=== PATIENT | female | born 1980 | race Caucasian/White ===

== ENCOUNTER 2016-12-06 12:50 | Day surgery (SDC) | payer BC ==
[~2016-12-06 12:50] MED LIST: Lactated Ringers 1,000 ML IV SCH; Lidocaine 1%/Sod Bicarbonate in NS 8.4% 1 ML Syringe IV PRN; Midazolam 1 MG/ML 2 ML SDV ONE; Ondansetron 4 MG/2 ML SDV ONE; Propofol 200 MG/20 ML SDV ONE; Rocuronium 50 MG/5 ML Vial ONE; Sodium Chloride 0.9% 10 ML Syringe FLUSH PRN; fentaNYL 250 MCG/5 ML SDV ONE
[2016-12-06] MEDS ORDERED: Heparin Sodium 5,000 Units/ML Vial SUBCUT SCH (13:00)
[2016-12-06] MEDS ORDERED: Lidocaine 1% with EPINEPHrine 1:100,000 20 ML MDV ONE (13:13)
[2016-12-06] MEDS ORDERED: Bupivacaine 0.5%/EPINEPHrine 1:200,000 50 ML MDV ONE (13:13)
--- NOTE | 2016-12-06 13:24 | PCM.PREANE ---
Preanesthetic Assessment - Anesthesia/Transfusion/Family Hx Anesthesia History: Prior Anesthesia Without Reaction Type of Anesthesia Reaction: Other (see below) Family History of Anesthesia Reaction: No Transfusion History: Unknown - Review of Systems General: No Symptoms Pulmonary: No Symptoms Cardiovascular: Other (HTN, well controlled) Gastrointestinal: No symptoms Neurological: No Symptoms Other: Reports: None - Physical Assessment NPO Status Date: 12/05/16 NPO Status Time: 20:00 Pulse: 81 O2 Sat by Pulse Oximetry: 99 Respiratory Rate: 16 Blood Pressure: 148/102 Temperature: 36.8 C Weight: 103.827 kg ASA Class: 2 Mental Status: Alert & Oriented x3 Airway Class: Mallampati = 2 Dentition: Reports: Normal Dentition Thyro-Mental Finger Breadths: 3 Mouth Opening Finger Breadths: 3 ROM/Head Extension: Full Lungs: Clear to auscultation, Normal respiratory effort Cardiovascular: Regular Rate, Regular Rhythm - Lab Values: Laboratory Last Values Urine HCG, Qual Negative (NEGATIVE) 12/06/16 12:58 - Allergies Allergies/Adverse Reactions: Allergies Allergy/AdvReac Type Severity Reaction Status Date / Time amoxicillin AdvReac Mild vomitting Verified 12/06/16 11:40 - Blood Product(s) Available: None - Anesthesia Plan Pre-Op Medication Ordered: None - Acknowledgements Anesthesia Type Planned: General Anesthesia Pt an Appropriate Candidate for the Planned Anesthesia: Yes Alternatives and Risks of Anesthesia Discussed w Pt/Guardian: Yes Pt/Guardian Understands and Agrees with Anesthesia Plan: Yes PreAnesthesia Questionnaire Cardiovascular History: Reports: Hypertension Respiratory History: Reports: None Gastrointestinal History: Reports: Cholelithiasis, Other (see below) Other Gastrointestinal History: elevated liver enzymes, RUQ pain, lacotse intolerance 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: Reports: Polycystic Ovaries, Musculoskeletal History: Reports: None Neurological History: Reports: None Psychiatric History: Reports: None Endocrine/Metabolic History: Reports: Obesity/BMI 30+, Other (see below) Other Endocrine/Metabolic History: hirsutism Hematologic History: Reports: None Immunologic History: Reports: None Oncologic (Cancer) History: Reports: None Dermatologic History: Reports: Other (see below) Other Dermatologic History: acne, hidradenitis, tummy tuck - Past Surgical History HEENT Surgical History: Reports: Adenoidectomy, Tonsillectomy GI Surgical History: Reports: Bariatric procedure, EGD, ERCP Female Surgical History: Reports: Breast reconstruction, section, LEEP - SUBSTANCE USE Smoking Status *Q: Never Smoker Recreational Drug Use History: No - HOME MEDS Home Medications: Home Meds Cholecalciferol (Vitamin D3) [Vitamin D3] 50,000 unit PO WEEKLY 12/03/16 [ History] Hydrochlorothiazide [Hydrochlorothiazide] 12.5 mg PO DAILY 12/03/16 [History] amLODIPine [Norvasc] 5 mg PO DAILY 12/03/16 [History] - CURRENT (IN HOUSE) MEDS Current Meds: Current Medications Heparin Sodium (Porcine) (Heparin Sodium) 5,000 units SUBCUT ONETIME JOSE ANTONIO Lactated Ringer's (Ringers, Lactated) 1,000 mls @ 125 mls/hr IV ASDIRECTED JOSE ANTONIO Stop: 12/06/16 23:00 Lidocaine/Sodium Bicarbonate (Buffered Lidocaine 1% In Ns 8.4%) 0.25 ml IV ONETIME PRN PRN Reason: Prior to IV Start Stop: 12/06/16 18:00 Sodium Chloride (Saline Flush) 10 ml FLUSH ASDIRECTED PRN PRN Reason: Keep Vein Open Stop: 12/06/16 18:00 Discontinued Medications Fentanyl (Sublimaze) Confirm Administered Dose 250 mcg .ROUTE .STK-MED ONE Stop: 12/06/16 12:23 Midazolam HCl (Versed 1 Mg/Ml) Confirm Administered Dose 2 mg .ROUTE .STK-MED ONE Stop: 12/06/16 12:21 Ondansetron HCl (Zofran) Confirm Administered Dose 4 mg .ROUTE .STK-MED ONE Stop: 12/06/16 12:21 Propofol (Diprivan 20 Ml) Confirm Administered Dose 200 mg .ROUTE .STK-MED ONE Stop: 12/06/16 12:21 Rocuronium [place] (Zemuron) Confirm Administered Dose 50 mg .ROUTE .STK-MED ONE Stop: 12/06/16 12:21 Preanesthetic Assessment - LAB Values: Laboratory Last Values Urine HCG, Qual Negative (NEGATIVE) 12/06/16 12:58 - ALLERGIES Allergies/Adverse Reactions: Allergies Allergy/AdvReac Type Severity Reaction Status Date / Time amoxicillin AdvReac Mild vomitting Verified 12/06/16 11:40
[2016-12-06] MEDS ORDERED: Heparin Sodium 5,000 Units/ML Vial ONE (13:30)
[2016-12-06] MEDS ORDERED: HYDROmorphone 0.5 MG/0.5 ML Syringe IVPUSH PRN (14:00)
[2016-12-06] MEDS ORDERED: fentaNYL 100 MCG/2 ML SDV IVPUSH PRN (14:00)
[2016-12-06] MEDS ORDERED: Metoclopramide 10 MG/2 ML SDV IVPUSH PRN (14:00)
[2016-12-06] MEDS ORDERED: Ondansetron 4 MG/2 ML SDV IVPUSH PRN (14:00)
[2016-12-06] MEDS ORDERED: ceFAZolin 1 GM Vial ONE (14:14)
[2016-12-06] MEDS ORDERED: Sodium Chloride 0.9% 10 ML ONE (14:14)
[2016-12-06] MEDS ORDERED: Iopamidol 612 MG/ML 50 ML SDV ONE ×2 (14:15→15:55)
[2016-12-06] MEDS ORDERED: Sodium Chloride 0.9% 50 ML SDV ONE ×3 (14:15→16:00)
[2016-12-06] MEDS ORDERED: HYDROmorphone 1 MG/ML Syringe ONE ×2 (14:33→15:11)
[2016-12-06] MEDS ORDERED: Lactated Ringers 1,000 ML ONE (14:52)
[2016-12-06] MEDS ORDERED: Rocuronium 50 MG/5 ML Vial ONE (15:46)
[2016-12-06] MEDS ORDERED: fentaNYL 250 MCG/5 ML SDV ONE (16:18)
--- NOTE | 2016-12-06 17:18 | PCM.POSTAN ---
POST ANESTHESIA ASSESSMENT - MENTAL STATUS Mental Status: alert, oriented - VITAL SIGNS Pulse Rate: 79 SaO2: 97 Resp Rate: 20 Blood Pressure: 159/101 Temperature: 97 F - RESPIRATORY Respiratory Status: respiratory rate WNL, airway patent, O2 saturation stable, supplemental oxygen - CARDIOVASCULAR CV Status: pulse rate WNL, blood pressure stable - GASTROINTESTINAL GI Status: no symptoms - PAIN Pain Score: 5 - POST OP HYDRATION Hydration Status: adequate & stable
--- NOTE | 2016-12-06 17:36 | PCM.OPNOTE ---
- General Post-Op/Procedure Note Date of Surgery/Procedure: 12/06/16 Operative Procedure(s): 1. Laparoscopic cholecystectomy with cholangiogram. 2. Laparoscopic lysis of adhesions. 3. Fluoroscopic guidance and interpretation Pre Op Diagnosis: Symptomatic cholelithiasis, transaminitis Post-Op Diagnosis: Acute on chronic cholecystitis, cholelithiasis, intra- abdominal adhesions Anesthesia Technique: General ET tube, Local Primary Surgeon: Sugar Bender Anesthesia Provider: Ander Hernandez Pathology: Gallbladder Fluid Replacement, Intraop: 2,000 (mL crystalloid ) EBL in mLs: 75 Surgical Drain/Tube Type: Brendan Morris Drain Complications: None Condition: Good Free Text/Narrative:: INDICATION FOR PROCEDURE: The patient is a 36-year-old woman who had been referred to me by the JUAN FRANCISCO Williamson for evaluation of symptomatic cholelithiasis with transaminitis. Laparoscopic cholecystectomy with intraoperative cholangiogram was discussed with the patient and associated risks of the procedure. The patient found these risks acceptable and agreed to proceed. DESCRIPTION OF PROCEDURE: The patient was taken to the operating room and placed in the supine position. Sequential compressive devices were placed on the bilateral lower extremities. After induction of general endotracheal anesthesia, the abdomen was prepped and draped in the usual sterile fashion. Preoperative antibiotics in the form of Ancef were administered as per protocol. The patient also received 5000 units of subcutaneous heparin due to history of requiring blood thinners while due to uncertain etiology associated with recurrent miscarriages. A supraumbilical curvilinear incision was made using a scalpel. The patient did have a previous abdominoplasty and had a circumumbilical scar, this was utilized for the procedure. This was deepened down through the subcutaneous tissues to the anterior abdominal wall fascia which was elevated and incised. The abdomen was bluntly entered using a hemostat. An 0 Vicryl stay suture was placed. A Cedeno cannula was introduced into the abdomen and the abdomen was insufflated to 15 mm of mercury. The abdomen was then surveyed. The patient had several adhesive bands in the upper abdomen, likely associated with her previous gastric bypass. She also had some scarring of the anterior surface of the uterus consistent with her prior . Overall the uterus and adnexa appeared grossly unremarkable. I was not able to fully visualize each ovary, however the superior portion of each appeared unremarkable. Attention was turned then to the patient's gallbladder which was densely adhesed around the infundibulum. Two additional 5 mm trocars were then placed under direct visualization after first injecting local anesthetic, one in the epigastrium and one in the right subcostal margin. The adhesions in the upper abdomen were taken down using electrocautery. The gallbladder fundus was elevated, and the triangle of Calot was dissected. I did place a retraction suture through the gallbladder fundus to facilitate dissection. The infundibulum was extremely scarred. This portion of the case was quite difficult. The infundibulum was twisted significantly. Multiple photographs were taken as the dissection proceeded. The cystic artery was ultimately isolated anterior to the cystic duct with the cystic duct and infundibulum partially traversing behind it in a twisted manner due to scarring. The cystic artery was triply clipped and divided using Endo Hemalatha to facilitate further dissection of the infundibulum, which was also doubled over and scarred onto itself. At this point I did attempt to obtain a cholangiogram, however there was not good outflow as a result of the scarring in the area of the cystic duct. Further dissection was performed and ultimately a window posterior to the duct and now straightened infundibulum was obtained. A repeat cholangiogram was obtained using a Yanez catheter and the cystic duct was seen draining into the common bile duct. The right and left hepatic radicals were noted as well as drainage of contrast into the duodenum. There were no obvious filling defects. The amount of scar tissue around the cystic duct stump was too significant for standard clipping. I did upsize the epigastric trocar to a 12 mm trocar. A 35 mm vascular load stapler was then placed across the cystic duct and just proximal to the previously placed cystic artery clips. The stapler was fired. There did appears to be some crushed stone material in the staple line from the cystic duct. The gallbladder was then taken off of the liver bed where it was both densely adhesed and edematous. The gallbladder was placed into an EndoCatch bag. The abdomen was irrigated and suctioned until the effluent was clear. The liver bed was reinspected for hemostasis. The gallbladder was removed through the epigastric port site. A 19 Welsh Silastic channel drain was then passed through the epigastric trocar and out the right lateral 5 mm trocar. The drain was positioned in the gallbladder fossa. The epigastric trocar site was closed using 2 [id number] 0 Vicryl sutures. The periumbilical fascial incision was closed using an 0 Vicryl figure-of- eight suture. Additional local anesthetic was injected marcelo-incisionally. The skin incisions were then closed using subcuticular 4-0 Monocryl suture. The drain was secured into position using a 3-0 Ethilon suture and placed to bulb suction. Dermabond was placed over the patient's skin incisions. The patient was then awakened from anesthesia, extubated, and transferred to the recovery room in stable condition having tolerated the procedure well. Sponge and instrument counts were reported as correct at the end of the case. POSTOPERATIVE PLAN: The patient will be discharged home today. Prescriptions for Percocet 5/325mg were given in addition to Zofran ODT and Senna-S. Drain teaching was provided. They will follow up in 2 days for a post-operative check and drain removal. They are not lift over 20 pounds for the next 4 weeks. They are to call the office with any questions or concerns. I discussed my intraoperative findings and discharge instructions with the patient's aunt. I also repeated LFTs today for a preoperative baseline as other labs had been drawn by anesthesia.
[2016-12-06] MEDS: HYDROmorphone 0.5 MG/0.5 ML Syringe IVPUSH PRN ×2 (17:55→18:25)
[2016-12-06] MEDS: Acetaminophen/oxyCODONE 325-5 MG Tab PO PRN (20:21)
[2016-12-07] MEDS: Acetaminophen/oxyCODONE 325-5 MG Tab PO PRN ×2 (03:09→07:40)
--- NOTE | 2016-12-07 08:03 | CR ---
Addendum: An additional image was made available which shows the CHD and CBD. Very distal CBD is not well seen but contrast is identified within the duodenum. Other portions of the ducts show no filling defects. Visualized intrahepatic portion of the ducts appear within normal limits. Impression: 1. Poorly seen distal portion of the CBD. Please correlate with fluoroscopic findings. Contrast is noted within the duodenum. 2. Single cholangiogram view is otherwise unremarkable. Diagnostic code #2 --- Addendum1 above dictated on [12/07/2016 09:14] by [Dixon Murcia, Yadiel Parra.] --- --- Addendum1 above signed on [12/07/2016 09:16] by [Dixon Murcia, Yadiel Parra.] --- --- Original report below dictated on [12/07/2016 05:44] by [Dixon Murcia, Yadiel Parra.] --- --- Original report below signed on [12/07/2016 08:00] by [Dixon Murcia, Yadiel Knapp] --- Operative cholangiogram: Multiple fluoroscopic spot views were obtained utilizing C-arm device in the operating room. No contrast filling of the CHD or CBD is seen. Study shows minimal intrahepatic biliary duct opacification with extravasation into the gallbladder bed. Impression: 1. Suboptimal study as noted above. Diagnostic code #2 --- Addendum1 signed ---
[2016-12-07 10:13] VITALS: BP 127/82
== END 2016-12-07 09:11 | disposition home or self-care (01) ==
LOC: JD.SDS 12:50
PROVIDERS: ATTEND Surgery
DX: K80.12 Calculus of gallbladder with acute and chronic cholecystitis without obstruction (principal); K66.0 Peritoneal adhesions (postprocedural) (postinfection); I10 Essential (primary) hypertension; E66.01 Morbid (severe) obesity due to excess calories; Z79.899 Other long term (current) drug therapy; Z98.890 Other specified postprocedural states
CPT/HCPCS: 36415; 47563; 74300; 80048; 80076; 81025; 85025; 88304; 93005; A9270; J0690; J1170; J1644; J2250; J2405; J3010; J7120; Q9967; 00790; J2704

== ENCOUNTER 2017-06-12 10:52 | Emergency (ER) | payer BC ==
[2017-06-12] MEDS ORDERED: Sodium Chloride 0.9% 10 ML Syringe FLUSH PRN (11:53)
[2017-06-12] MEDS ORDERED: Sodium Chloride 0.9% 1,000 ML IV ONE (11:53)
--- NOTE | 2017-06-12 11:56 | EDM.PDOC ---
ED HPI GENERAL MEDICAL PROBLEM - General Chief Complaint: Upper Extremity Injury/Pain Stated Complaint: LEFT ARM SWOLLEN-SENT FROM WALK-IN Time Seen by Provider: 06/12/17 11:42 Source of Information: Reports: Patient History Limitations: Reports: No Limitations - History of Present Illness INITIAL COMMENTS - FREE TEXT/NARRATIVE: Patient is a 36-year-old female presents ED complaining of left arm swelling with redness and pain. Patient states onset of symptoms was this past Tuesday. Has noted increasing swelling since with redness and pain. States Tuesday she was involved in a T Rx class which required multiple repetitive movements to the upper body. Including bicep curls. States she was able to complete all the exercises with really no difficulties. She's noted the swelling has progressively gotten worse. She was seen at walk-in clinic today with concerns of having a blood clot. She does have a history of blood clot while being causing miscarriage. Blood clot was to the placenta. She is currently not . She is on Mirena and does not smoke. She has past medical history of hypertension and is currently on amlodipine with hydrochlorothiazide. Denies a fever/chills, shortness breath, chest pain, or any additional complaints. Urine color has been clear/light straw color. 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 Left Arm Pain Score (Numeric/FACES): 7 - Related Data Allergies Allergy/AdvReac Type Severity Reaction Status Date / Time amoxicillin AdvReac Mild vomitting Verified 06/12/17 11:08 Home Meds: Home Meds Hydrochlorothiazide 12.5 mg PO DAILY 12/03/16 [History] amLODIPine [Norvasc] 5 mg PO DAILY 12/03/16 [History] Past Medical History Cardiovascular History: Reports: Hypertension Respiratory History: Reports: None Gastrointestinal History: Reports: Cholelithiasis, Other (See Below) Other Gastrointestinal History: elevated liver enzymes, RUQ pain, lacotse intolerance 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: Polycystic 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, Musculoskeletal History: Reports: None Neurological History: Reports: None Psychiatric History: Reports: None Endocrine/Metabolic History: Reports: Obesity/BMI 30+, Other (See Below) Other Endocrine/Metabolic History: hirsutism Hematologic History: Reports: None Immunologic History: Reports: None Oncologic (Cancer) History: Reports: None Dermatologic History: Reports: Other (See Below) Other Dermatologic History: acne, hidradenitis, tummy tuck - Past Surgical History HEENT Surgical History: Reports: Adenoidectomy, Tonsillectomy GI Surgical History: Reports: Bariatric Procedure, Cholecystectomy, EGD, ERCP Female Surgical History: Reports: Breast Reconstruction, Section, LEEP Social & Family History - Tobacco Use Smoking Status *Q: Never Smoker Second Hand Smoke Exposure: No - Caffeine Use Caffeine Use: Reports: Coffee, Soda - Recreational Drug Use Recreational Drug Use: No Drug Use in Last 12 Months: No Review of Systems - Review of Systems Review Of Systems: ROS reveals no pertinent complaints other than HPI. ED EXAM, GENERAL - Physical Exam Exam: See Below Exam Limited By: No Limitations General Appearance: Alert, WD/WN, No Apparent Distress Ears: Hearing Grossly Normal Nose: Normal Inspection Throat/Mouth: Normal Inspection, Normal Voice, No Airway Compromise Neck: Normal Inspection, Supple Respiratory/Chest: No Respiratory Distress, Lungs Clear, Normal Breath Sounds, No Accessory Muscle Use, Chest Non-Tender Cardiovascular: Normal Peripheral Pulses, Regular Rate, Rhythm, No Murmur Peripheral Pulses: 2+: Radial (L) Back Exam: Normal Inspection Extremities: Other (Significant swelling noted to the left lower and upper arm and comparison to the right. Increased redness noted along the medial aspect of the arm with what appears to be not stated the biceps muscle. Full range of motion noted. No sensory deficits present. No motor deficits present.) Psychiatric: Normal Affect, Normal Mood Skin Exam: Warm, Dry, Intact Course - Vital Signs Last Recorded V/S: Last Vital Signs Temp 97.5 F 06/12/17 11:06 Pulse 81 06/12/17 15:20 Resp 20 06/12/17 11:06 BP 165/96 H 06/12/17 15:20 Pulse Ox 100 06/12/17 15:20 - Orders/Labs/Meds Labs: Laboratory Tests 06/12/17 06/12/17 06/12/17 Range/Units 12:10 12:10 14:00 WBC 6.91 (3.98-10.04) K/mm3 RBC 4.87 (3.98-5.22) M/mm3 Hgb 13.9 (11.2-15.7) gm/L Hct 41.6 (34.1-44.9) % MCV 85.4 (79.4-94.8) fl MCH 28.5 (25.6-32.2) pg MCHC 33.4 (32.2-35.5) g/dl RDW Std Deviation 39.6 (36.4-46.3) fL Plt Count 218 (182-369) K/mm3 MPV 10.5 (9.4-12.3) fl Neut % (Auto) 68.9 (34.0-71.1) % Lymph % (Auto) 18.5 L (19.3-51.7) % [place] % (Auto) 9.7 (4.7-12.5) % Eos % (Auto) 2.5 (0.7-5.8) Baso % (Auto) 0.3 (0.1-1.2) % Neut # (Auto) 4.76 (1.56-6.13) K/mm3 Lymph # (Auto) 1.28 (1.18-3.74) K/mm3 [place] # (Auto) 0.67 H (0.24-0.36) K/mm3 Eos # (Auto) 0.17 (0.04-0.36) K/mm3 Baso # (Auto) 0.02 (0.01-0.08) K/mm3 Sodium 140 (136-145) mEq/L Potassium 4.2 (3.5-5.1) mEq/L Chloride 104 (98-107) mEq/L Carbon Dioxide 27 (21-32) mEq/L Anion Gap 13.2 (5-15) BUN 8 (7-18) mg/dL Creatinine 0.7 (0.55-1.02) mg/dL Est Cr Clr Drug Dosing 108.04 mL/min Estimated GFR (MDRD) > 60 (>60) mL/min BUN/Creatinine Ratio 11.4 L (14-18) Glucose 89 (74-106) mg/dL Calcium 8.6 (8.5-10.1) mg/dL Total Bilirubin 0.5 (0.2-1.0) mg/dL AST 309 H (15-37) U/L ALT 124 H (14-59) U/L Alkaline Phosphatase 116 (46-116) U/L Creatine Kinase 9494 H (26-192) U/L C-Reactive Protein 0.4 (<1.0) mg/dL Total Protein 6.8 (6.4-8.2) g/dl Albumin 3.5 (3.4-5.0) g/dl Globulin 3.3 gm/dL Albumin/Globulin Ratio 1.1 (1-2) Urine Color Yellow (Yellow) Urine Appearance Clear (Clear) Urine pH 6.0 (5.0-8.0) Ur Specific [place] > or = 1.030 (1.005-1.030) Urine Protein Negative (Negative) Urine Glucose (UA) Negative (Negative) Urine Ketones 1+ H (Negative) Urine Occult Blood Negative (Negative) Urine Nitrite Negative (Negative) Urine Bilirubin Negative (Negative) Urine Urobilinogen 0.2 (0.2-1.0) Ur Leukocyte Esterase Negative (Negative) Urine RBC 0-5 (0-5) /hpf Urine WBC 0-5 (0-5) /hpf Ur Epithelial Cells 10-20 H (0-5) /hpf Urine Bacteria Rare (FEW) /hpf Urine Mucus Moderate H (FEW) /hpf Meds: Medications Discontinued Medications Generic Name Dose Route Start Last Admin Trade Name Freq PRN Reason Stop Dose Admin Sodium Chloride 1,000 mls @ 250 mls/hr 06/12/17 11:53 06/12/17 12:17 Normal Saline IV 06/12/17 15:52 250 mls/hr ONETIME ONE Administration Sodium Chloride 2,000 mls @ 999 mls/hr 06/12/17 13:50 06/12/17 14:19 Normal Saline IV 06/12/17 15:50 999 mls/hr ONETIME ONE Administration Sodium Chloride 10 ml 06/12/17 11:53 06/12/17 12:17 Saline Flush FLUSH 10 ml ASDIRECTED PRN Administration Keep Vein Open - Re-Assessments/Exams Free Text/Narrative Re-Assessment/Exam: IV established with normal saline 250 mL/h. Initial labs and studies include CBC , chem 14, CRP, CPK, and feels duplex upper extremity left. Labs reviewed: White blood cell count 6.91, hemoglobin 13.9, platelet count 218 , sodium 140, potassium 4.2, CO2 27, AG 13.2, CR 0.7, AST 309, ALT 124, CPK 9494 , and CRP 0.4. 06/12/17 13:[address] 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 Suggest UA plus myoglobin. If myoglobin is normal discharged home with follow-up with PCP in 2- 3 days. Suggest 2 additional liters of IV fluids and 2 L by mouth by patient for the next 3-4 days upon discharge. If the CPK continues to climb then she requires hospitalization. Ultrasound delayed do to communication error. UA revealed ketones 1+, epithelial 10-20, moderate mucus. No protein present. 1549 ultrasound of the left upper extremity impression: No evidence of venous thrombosis. IV fluids are in. Will discharge patient home with instructions as documented. Departure - Departure Time of Disposition: 15:51 Disposition: Home, Self-Care 01 Condition: Good Clinical Impression: Elevated LFTs Rhabdomyolysis Qualifiers: Rhabdomyolysis type: non-traumatic Qualified Code(s): M62.82 - Rhabdomyolysis - Discharge Information Instructions: Rhabdomyolysis Referrals: Bette Calhoun, [employer] [Primary Care Provider] - Forms: ED Department Discharge Additional Instructions: As discussed ultrasound of the left upper arm did not reveal any blood clot present. Etiology of current complaint is called rhabdomyolysis. This is a breakdown of muscle tissue/cells taken clot of the renal two-view reveals causing acute renal failure. Treatment is fluid hydration. He received 3 L of normal saline while in the ED. Plan is to discharge her home and heavy continue drinking 2 L of water daily. Refrain from utilizing any NSAIDs. Follow-up with your PCP in 2-3 days to have you were CMP and also CPK rechecked. Normally with the proper hydration this CPK levels will decreased 50% every day. If the CPK levels are increasing you require hospitalization. No working out until instructed you're able to do so by PCP. Return to the ED for any new or worsening symptoms.
[2017-06-12] MEDS ORDERED: Sodium Chloride 0.9% 2,000 ML IV ONE (13:50)
[2017-06-12 15:20] VITALS: BP 165/96
--- NOTE | 2017-06-12 15:41 | US ---
Left upper extremity venous ultrasound: Duplex and color flow imaging was obtained of the left internal jugular, subclavian, axillary, brachial, cephalic, radial, ulnar and basilic veins. Findings: Normal compression, phasic flow and augmentation is seen. Impression: 1. No evidence of venous thrombosis is seen within the left upper extremity. Diagnostic code #1
== END 2017-06-12 16:18 | disposition home or self-care (01) ==
LOC: JD.ED 10:52
DX: M62.82 Rhabdomyolysis (principal); R79.89 Other specified abnormal findings of blood chemistry; Z79.899 Other long term (current) drug therapy; I10 Essential (primary) hypertension; E66.9 Obesity, unspecified; Z88.1 Allergy status to other antibiotic agents
CPT/HCPCS: 36415; 80053; 81001; 82550; 83874; 85025; 86140; 93971; 96360; 96361; 99284; J7040; J7050

== ENCOUNTER 2020-03-04 16:35 | Emergency (ER) | payer OTHER ==
[2020-03-04 17:18] VITALS: BP 135/86; PULSE 67
--- NOTE | 2020-03-04 18:21 | CT ---
CT cervical spine Technique: Multiple axial sections were obtained from above C1 inferiorly to the bottom of T1. Reconstructed sagittal and coronal images were obtained. Findings: Severe disc space narrowing is noted at C4-5, C5-6, C6-7, C7-T1 and T1-2. Scattered anterior osteophytes are seen at the same levels. Vertebral body heights are maintained. No fracture is appreciated. Mild right-sided neural foraminal stenosis is noted at C4-5. Mild central canal stenosis at C5-6 due to posterior spurring. Mild bilateral neural foraminal stenosis is also noted at C5-6. Mild right-sided neural foraminal stenosis is noted at C6-7. Other neural foramina are patent. Scattered degenerative apophyseal change is seen. Impression: 1. Diffuse degenerative change. 2. Nothing acute is appreciated. Diagnostic code #2 This report was dictated in MDT
--- NOTE | 2020-03-04 18:22 | CT ---
Head CT Technique: Multiple axial sections through the brain were obtained. Intravenous contrast was not utilized. Comparison: No prior intracranial imaging is available. Findings: Ventricles along with basal cisterns and sulci over the convexities are within normal limits for the patient's age. No abnormal parenchymal densities are seen. No evidence of intracranial hemorrhage. No midline shift or mass-effect is seen. Minimal mucosal thickening is seen within the ethmoid sinuses. Mastoid sinuses show nothing acute. No acute calvarial finding is seen. Impression: 1. Minimal ethmoid sinus findings believed to be incidental. 2. No acute intracranial abnormality is appreciated. Diagnostic code #2 This report was dictated in MDT
--- NOTE | 2020-03-04 19:20 | EDM.PDOC ---
ED HPI GENERAL MEDICAL PROBLEM - General Chief Complaint: Neck Problem Stated Complaint: HEAD AND NECK INJURY/FELL YESTERDAY Time Seen by Provider: 03/04/20 17:18 Source of Information: Reports: Patient History Limitations: Reports: No Limitations - History of Present Illness INITIAL COMMENTS - FREE TEXT/NARRATIVE: The patient presents with neck pain, right wrist pain and blurry vision. She was playing soft ball last night and she was going to [employer] and she fell. She had no LOC. She has some blurry vision today. She has some pain to the base of her neck. She has no headache but she feels foggy. She has right wrist pain. She has no numbness, weakness, fever, chills, cough, congestion, runny nose, chest pain, shortness of breath, abdominal pain, nausea or vomiting. Onset: Sudden Duration: Day(s): (Last night) Location: Reports: Neck, Upper Extremity, Right (wrist) Quality: Reports: Sharp Severity: Moderate Improves with: Reports: Immobilization Worsens with: Reports: Movement Context: Reports: Trauma Associated Symptoms: Reports: No Other Symptoms Posterior Occipital Neck Pain Score (Numeric/FACES): 4 - Related Data Allergies Allergy/AdvReac Type Severity Reaction Status Date / Time amoxicillin AdvReac Mild vomitting Verified 06/12/17 11:08 Home Meds: Home Meds Celecoxib [CeleBREX] 200 mg PO DAILY 03/04/20 [History] Losartan [Cozaar] 100 mg PO DAILY 03/04/20 [History] hydroCHLOROthiazide [Hydrochlorothiazide] 25 mg PO DAILY 03/04/20 [History] Past Medical History Cardiovascular History: Reports: Hypertension Respiratory History: Reports: None Gastrointestinal History: Reports: Cholelithiasis, Other (See Below) Other Gastrointestinal History: elevated liver enzymes, RUQ pain, lacotse intolerance 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 History: Reports: Polycystic Ovaries, Musculoskeletal History: Reports: None Neurological History: Reports: None Psychiatric History: Reports: None Endocrine/Metabolic History: Reports: Obesity/BMI 30+, Other (See Below) Other Endocrine/Metabolic History: hirsutism Hematologic History: Reports: None Immunologic History: Reports: None Oncologic (Cancer) History: Reports: None Dermatologic History: Reports: Other (See Below) Other Dermatologic History: acne, hidradenitis, tummy tuck - Infectious Disease History Infectious Disease History: Reports: Chicken Pox - Past Surgical History HEENT Surgical History: Reports: Adenoidectomy, Tonsillectomy GI Surgical History: Reports: Bariatric Procedure, Cholecystectomy, EGD, ERCP Female Surgical History: Reports: Breast Reconstruction, Section, LEEP Social & Family History - Tobacco Use Smoking Status *Q: Never Smoker Second Hand Smoke Exposure: No - Caffeine Use Caffeine Use: Reports: Coffee, Soda Review of Systems - Review of Systems Review Of Systems: See Below Constitutional: Reports: No Symptoms Eyes: Reports: No Symptoms Ears: Reports: No Symptoms Nose: Reports: No Symptoms Mouth/Throat: Reports: No Symptoms Respiratory: Reports: No Symptoms Cardiovascular: Reports: No Symptoms GI/Abdominal: Reports: No Symptoms Genitourinary: Reports: No Symptoms Musculoskeletal: Reports: Neck Pain ED EXAM, GENERAL - Physical Exam Exam: See Below Exam Limited By: No Limitations General Appearance: Alert, No Apparent Distress Eye Exam: Bilateral Eye: EOMI, PERRL (Slowly to respond) Ears: Normal External Exam Nose: Normal Inspection Head: Atraumatic, Normocephalic Neck: Normal Inspection Respiratory/Chest: No Respiratory Distress, Lungs Clear, Normal Breath Sounds Cardiovascular: Regular Rate, Rhythm, No Edema, No Murmur GI/Abdominal: Soft, Non-Tender, No Organomegaly, No Mass Back Exam: Normal Inspection Extremities: Other (Mild pain upon palpation to the wrist with no edema.) Neurological: Alert, Oriented, No Motor/Sensory Deficits Course - Vital Signs Last Recorded V/S: Last Vital Signs Temp 98.2 F 03/04/20 17:14 Pulse 67 03/04/20 17:14 Resp 16 03/04/20 17:14 BP 135/86 03/04/20 17:14 Pulse Ox 98 03/04/20 17:14 - Re-Assessments/Exams Free Text/Narrative Re-Assessment/Exam: 03/04/20 19:[address] of her head and cervical spine. The CT of cervical spine shows diffuse degenerative change. Nothing acute is appreciated. The CT of her head shows minimal ethmoid sinus findings believed to be incidental. No acute intracranial abnormality is appreciated. i will discharge her home and have her follow up with her hydraulic press tender. Departure - Departure Time of Disposition: 19:20 Disposition: Home, Self-Care 01 Condition: Good Clinical Impression: Blurry vision, bilateral Cervical strain Qualifiers: Encounter type: initial encounter Qualified Code(s): S16.1XXA - Strain of muscle, fascia and tendon at neck level, initial encounter Right wrist sprain Qualifiers: Encounter type: initial encounter Qualified Code(s): S63.501A - Unspecified sprain of right wrist, initial encounter - Discharge Information *PRESCRIPTION DRUG MONITORING PROGRAM REVIEWED*: Not Applicable *COPY OF PRESCRIPTION DRUG MONITORING REPORT IN PATIENT AYAN: Not Applicable Referrals: Bernardo Hernandez MD [Primary Care Provider] - 1 Week Additional Instructions: Take tylenol or motrin for pain. Ice the areas that hurt for 15 minutes 3 times per day for 2 days. Follow up with your hydraulic press tender. Please return if you are worse. Sepsis Event Note (ED) - Evaluation Sepsis Screening Result: No Definite Risk - Focused Exam Vital Signs: Vital Signs Temp Pulse Resp BP Pulse Ox 03/04/20 17:14 98.2 F 67 16 135/86 98
== END 2020-03-04 19:45 | disposition home or self-care (01) ==
LOC: JD.ED 16:35
DX: S16.1XXA Strain of muscle, fascia and tendon at neck level, initial encounter (principal); S63.501A Unspecified sprain of right wrist, initial encounter; I10 Essential (primary) hypertension; H53.8 Other visual disturbances; E66.9 Obesity, unspecified; Z68.35 Body mass index [BMI] 35.0-35.9, adult; Z79.899 Other long term (current) drug therapy; Z88.1 Allergy status to other antibiotic agents; W19.XXXA Unspecified fall, initial encounter; Y93.64 Activity, baseball
CPT/HCPCS: 70450; 70450-26; 72125; 72125-26; 99282; 99283-25

== ENCOUNTER 2022-02-12 20:39 | Emergency (ER) | payer BC, OTHER ==
[2022-02-12 20:52] VITALS: BP 142/100; PULSE 91
[2022-02-12] MEDS ORDERED: Sodium Chloride 0.9% 10 ML Syringe FLUSH PRN (21:19)
[2022-02-12] MEDS ORDERED: Alum Hydrox/Mag Hydrox/Simeth 30 ML, Lidocaine 2% 15 ML PO ONE ×2 (21:20)
[2022-02-12 21:46] LABS: ESTIMATED GFR 95 mL/min (>60)
== END 2022-02-12 23:20 | disposition home or self-care (01) ==
LOC: JD.ED 20:39
DX: R12 Heartburn (principal); I10 Essential (primary) hypertension; E66.9 Obesity, unspecified; Z68.35 Body mass index [BMI] 35.0-35.9, adult; Z79.899 Other long term (current) drug therapy; Z88.0 Allergy status to penicillin
CPT/HCPCS: 36415; 74177; 80053; 83690; 84484; 85025; 86140; 93005; 99284; A9270; J3490

== ENCOUNTER 2023-04-15 17:40 | Emergency (ER) | payer BC ==
[2023-04-15 17:59] VITALS: BP 142/98
[2023-04-15] MEDS ORDERED: Sodium Chloride 0.9% 1,000 ML IV ONE (19:49)
[2023-04-15 20:18] LABS: HEMATOCRIT 44.7 % (34.1-44.9); HEMOGLOBIN 15.1 gm/dl (11.2-15.7); MEAN CORPUSCULAR HEMOGLOBIN 28.3 pg (25.6-32.2); MEAN CORPUSCULAR HGB CONC 33.8 g/dl (32.2-35.5); MEAN CORPUSCULAR VOLUME 83.9 fl (79.4-94.8); MEAN PLATELET VOLUME 10.3 fl (9.4-12.3); PLATELET COUNT,PLT 280 K/mm3 (182-369); RED BLOOD CELL COUNT 5.33 M/mm3 (3.98-5.22); WHITE BLOOD CELL COUNT,WBC 9.89 K/mm3 (3.98-10.04)
[2023-04-15 20:24] LABS: APPEARANCE,URINE CLEAR (Clear); BILIRUBIN,URINE NEGATIVE (Negative); COLOR,URINE YELLOW (Yellow); GLUCOSE,URINE NEGATIVE (Negative); KETONES,URINE 1+ (Negative); LEUKOCYTE ESTERASE,URINE 1+ (Negative); NITRITE,URINE NEGATIVE (Negative); OCCULT BLOOD,URINE NEGATIVE (Negative); PROTEIN,URINE TRACE (Negative); UROBILINOGEN,URINE 0.2 (0.2-1.0)
[2023-04-15 20:33] LABS: BACTERIA,URINE MODERATE /hpf (FEW); HYALINE CASTS,URINE 0-5 /lpf (0-5); MUCUS,URINE MANY /hpf (FEW); RBC,URINE 0-5 /hpf (0-5)
[2023-04-15 20:36] LABS: BAND PERCENT MAN 0 % (0-10); BASOPHILS PERCENT MAN 2 (0.1-1.2); EOSINOPHILS PERCENT MAN 0 % (0.7-5.8); LYMPHOCYTES % ATYPICAL MANUAL 0 %; LYMPHOCYTES PERCENT MAN 17 % (20-40); MONOCYTES PERCENT MAN 6 % (2-10)
[2023-04-15 20:37] LABS: INR 1.09; PROTHROMBIN TIME 11.6 SECONDS (9.7-12.0)
[2023-04-15 20:39] LABS: ALANINE AMINOTRANSFERASE,ALT 20 U/L (14-59); ALBUMIN 4.4 g/dl (3.4-5.0); ALKALINE PHOSPHATASE 113 U/L (46-116); ASPARTATE AMNIOTRANSFERASE,AST 17 U/L (15-37); BILIRUBIN TOTAL 1.2 mg/dL (0.2-1.0); BLOOD UREA NITROGEN,BUN 9 mg/dL (7-18); C-REACTIVE PROTEIN <0.2 mg/dL (<1.0); CALCIUM 9.5 mg/dL (8.5-10.1); CARBON DIOXIDE,CO2 21 mEq/L (21-32); CHLORIDE,CL 103 mEq/L (98-107); EST CRCL DRUG DOSING (CG) 71.27 mL/min; ESTIMATED GFR 72 mL/min (>60); GLUCOSE RANDOM 97 mg/dL (70-99); PLATELET COUNT ESTIMATE ADEQUATE; PROTEIN TOTAL,TP 8.8 g/dl (6.4-8.2); SODIUM,NA 139 mEq/L (136-145)
[2023-04-15 20:55] VITALS: PULSE 109
== END 2023-04-15 22:25 | disposition home or self-care (01) ==
LOC: JD.ED 17:40
DX: U07.1 COVID-19 (principal); I10 Essential (primary) hypertension; E66.9 Obesity, unspecified; Z68.27 Body mass index [BMI] 27.0-27.9, adult; Z88.0 Allergy status to penicillin; Z79.899 Other long term (current) drug therapy
CPT/HCPCS: 36415; 71046; 80053; 81001; 83605; 85007; 85027; 85610; 86140; 87040; 87086; 87635; 96360; 99284; J7030; U0002

== ENCOUNTER 2023-04-18 10:56 | Emergency (ER) | payer BC ==
[2023-04-18] MEDS ORDERED: Sodium Chloride 0.9% 1,000 ML IV ONE (11:17)
[2023-04-18] MEDS ORDERED: HYDROmorphone 0.5 MG/0.5 ML Syringe IVPUSH ONE (11:17)
[2023-04-18] MEDS ORDERED: diphenhydrAMINE 50 MG/ML SDV IVPUSH ONE (11:17)
[2023-04-18] MEDS ORDERED: Metoclopramide 10 MG/2 ML SDV IVPUSH ONE (11:17)
[2023-04-18 12:11] LABS: BASOPHILS ABSOLUTE AUTO 0.01 K/mm3 (0.01-0.08); BASOPHILS PERCENT AUTO 0.1 % (0.1-1.2); EOSINOPHILS ABSOLUTE AUTO 0.03 K/mm3 (0.04-0.36); EOSINOPHILS PERCENT AUTO 0.3 (0.7-5.8); HEMATOCRIT 40.1 % (34.1-44.9); IMMATURE GRAN ABSOLUTE AUTO 0.01 K/mm3 (0.00-0.10); IMMATURE GRAN PERCENT AUTO 0.1 % (<=1.0); LYMPHOCYTES PERCENT AUTO 8.6 % (19.3-51.7); MEAN CORPUSCULAR HEMOGLOBIN 28.4 pg (25.6-32.2); MEAN CORPUSCULAR HGB CONC 33.7 g/dl (32.2-35.5); MEAN CORPUSCULAR VOLUME 84.2 fl (79.4-94.8); MEAN PLATELET VOLUME 10.4 fl (9.4-12.3); MONOCYTES ABSOLUTE AUTO 0.84 K/mm3 (0.24-0.36); NEUTROPHILS ABSOLUTE AUTO 7.61 K/mm3 (1.56-6.13); NEUTROPHILS PERCENT AUTO 81.9 % (34.0-71.1); PLATELET COUNT,PLT 217 K/mm3 (182-369); RED BLOOD CELL COUNT 4.76 M/mm3 (3.98-5.22)
[2023-04-18 12:31] LABS: HEMOGLOBIN 13.5 gm/dl (11.2-15.7)
[2023-04-18 12:32] LABS: A/G RATIO 0.9 (1-2); ALBUMIN 3.6 g/dl (3.4-5.0); BILIRUBIN TOTAL 0.7 mg/dL (0.2-1.0); BUN/CREATININE RATIO 14.4 (14-18); CALCIUM 8.9 mg/dL (8.5-10.1); CREATININE 0.9 mg/dL (0.55-1.02); EST CRCL DRUG DOSING (CG) 79.19 mL/min; MAGNESIUM 1.8 mg/dL (1.8-2.4); PROTEIN TOTAL,TP 7.8 g/dl (6.4-8.2)
[2023-04-18 19:10] VITALS: BP 132/90; PULSE 101
== END 2023-04-18 15:20 | disposition home or self-care (01) ==
LOC: JD.ED 10:56
DX: U07.1 COVID-19 (principal); I10 Essential (primary) hypertension; E66.9 Obesity, unspecified; Z68.28 Body mass index [BMI] 28.0-28.9, adult; Z88.0 Allergy status to penicillin; Z79.899 Other long term (current) drug therapy
CPT/HCPCS: 36415; 80053; 83735; 85025; 96361; 96374; 96375; 99284; J1170; J1200; J2765; J7030; 99283